=== PATIENT | female | born 1985 | race Caucasian/White ===

== ENCOUNTER 2019-01-02 08:40 | Emergency (ER) | payer OTHER ==
[2019-01-02 09:24] LABS: BILIRUBIN,URINE NEGATIVE (NEGATIVE); GLUCOSE, URINE (UA) NEGATIVE (NEGATIVE); KETONES,URINE (UA) NEGATIVE (NEGATIVE); LEUKOCYTE ESTERASE, URINE NEGATIVE (NEGATIVE); NITRITE,URINE NEGATIVE (NEGATIVE); OCCULT BLOOD,URINE NEGATIVE (NEGATIVE); PROTEIN,URINE NEGATIVE (NEGATIVE); UROBILINOGEN,URINE 0.2 (NORMAL) E.U./dL (NORMAL)
[2019-01-02 09:27] LABS: CLARITY,URINE CLEAR (CLEAR)
[2019-01-02 09:28] LABS: HCG UR QUAL NEGATIVE
[2019-01-02 09:29] LABS: BASOPHILS % (AUTO) 0.3 %; EOSINOPHILS # (AUTO) 0.2 10^3/uL (0.0-0.7); EOSINOPHILS % (AUTO) 1.7 %; LYMPHOCYTES # (AUTO) 1.8 10^3/uL (1.5-3.5); LYMPHOCYTES % (AUTO) 20.6 %; MEAN CORPUSCULAR HEMOGLOBIN 30.8 pg (27.0-31.0); MEAN CORPUSCULAR HGB CONC 34.5 g/dL (32.0-36.0); MEAN CORPUSCULAR VOLUME 89.4 fL (81.0-99.0); MEAN PLATELET VOLUME 10.8 fL (7.9-10.8); MONOCYTES # (AUTO) 0.6 10^3/uL (0.0-1.0); MONOCYTES % (AUTO) 6.6 %; NEUTROPHILS # (AUTO) 6.2 10^3/uL (1.5-6.6); NEUTROPHILS % (AUTO) 70.5 %; PLT - PLATELET COUNT 269 10^3/uL (130-450); RED BLOOD COUNT 4.54 10^6/uL (4.20-5.40); RED CELL DISTRIBUTION WIDTH 12.3 % (12.0-15.0); WHITE BLOOD COUNT 8.7 x10^3/uL (4.8-10.8)
[2019-01-02 09:43] LABS: ALBUMIN 4.6 g/dL (3.2-5.5); ALBUMIN/GLOBULIN RATIO 1.5 (1.0-2.2); BILIRUBIN,TOTAL 1.1 mg/dL (0.2-1.0); CALCIUM 9.1 mg/dL (8.5-10.3); CREATININE 0.7 mg/dL (0.4-1.0); TOTAL PROTEIN 7.7 g/dL (6.7-8.2)
--- NOTE | 2019-01-02 10:42 | ED Physician Documentation ---
PD HPI ABD PAIN - Stated complaint Stated Complaint: ABD PX - Chief complaint Chief Complaint: Abd Pain - History obtained from History obtained from: Patient, Family - History of Present Illness Timing - onset: How many days ago (4) Timing - duration: Days (4) Timing - details: Abrupt onset, Still present, Waxing and waning Quality: Sharp, Pain Location: RLQ Radiation: Lower back Improved by: Other (nothing) Worsened by: Other (nothing) Associated symptoms: No: Fever, Nausea, Vomiting, Diarrhea, Constipation Similar symptoms before: Has not had sx before Recently seen: Not recently seen - Additional information Additional information: 33-year-old female developed acute right lower quadrant cramping pain 4 days ago and this lasted for several hours and then improved and she had some aching for the rest of the day. She was well over the weekend with no pain at all. This morning she developed acute pain again and the pain was severe. She said some improvement now and she is down to about a 2 out of 10. She was not able to modify the pain in any way. Review of Systems Constitutional: denies: Fever, Chills Eyes: denies: Decreased vision Ears: denies: Ear pain Nose: denies: Congestion Throat: denies: Sore throat Cardiac: denies: Chest pain / pressure, Palpitations Respiratory: denies: Dyspnea, Cough GI: reports: Abdominal Pain. denies: Nausea, Vomiting, Constipation, Diarrhea : denies: Dysuria, Frequency PD PAST MEDICAL HISTORY - Past Medical History Past Medical History: Yes Endocrine/Autoimmune: Other Other Past Medical History: Graves Diseas. - Past Surgical History Past Surgical History: No - Present Medications Home Medications: Ambulatory Orders Medication Instructions Recorded Confirmed traMADol [Ultram] 50 - 100 mg PO Q6H PRN #20 tablet 01/02/19 - Allergies Allergies/Adverse Reactions: Allergies Allergy/AdvReac Type Severity Reaction Status Date / Time codeine AdvReac Nausea Verified 01/02/19 09:10 - Social History Does the pt smoke?: No Smoking Status: Never smoker PD ED PE NORMAL - Vitals Vital signs reviewed: Yes (normal ) - General General: Alert and oriented X 3, No acute distress, Well developed/nourished - HEENT HEENT: Atraumatic, PERRL, EOMI - Neck Neck: Supple, no meningeal sign, No bony TTP - Cardiac Cardiac: RRR, No murmur - Respiratory Respiratory: No respiratory distress, Clear bilaterally - Abdomen Abdomen: Normal bowel sounds, Soft, Non distended, No organomegaly, Other (minimal right lower quadrant tenderness without gaurding or rebound., ) - Back Back: No CVA TTP, No spinal TTP - Derm Derm: Normal color, Warm and dry, No rash - Extremities Extremities: No deformity, No edema - Neuro Neuro: Alert and oriented X 3, finance consultant 2-12 intact, No motor deficit, No sensory deficit, Normal speech Eye Opening: Spontaneous Motor: Obeys Commands Verbal: Oriented GCS Score: 15 - Psych Psych: Normal mood, Normal affect Results - Vitals Vitals: Vital Signs - 24 hr 01/02/19 01/02/19 09:07 11:10 Temperature 36.7 C Heart Rate 72 71 Respiratory 18 16 Rate Blood Pressure 109/65 110/74 O2 Saturation 100 100 Oxygen O2 Source Room air - Labs Labs: Laboratory Tests 01/02/19 01/02/19 01/02/19 09:18 09:18 09:27 WBC 8.7 RBC 4.54 Hgb 14.0 Hct 40.6 MCV 89.4 MCH 30.8 MCHC 34.5 RDW 12.3 Plt Count 269 MPV 10.8 Neut # (Auto) 6.2 Lymph # (Auto) 1.8 [place] # (Auto) 0.6 Eos # (Auto) 0.2 Baso # (Auto) 0.0 Absolute Nucleated RBC 0.00 Nucleated RBC % 0.0 Sodium Potassium Chloride Carbon Dioxide Anion Gap BUN Creatinine Estimated GFR (MDRD) Glucose Calcium Total Bilirubin AST ALT Alkaline Phosphatase Total Protein Albumin Globulin Albumin/Globulin Ratio Lipase Urine Color DARK YELLOW Urine Clarity CLEAR Urine pH 7.0 Ur Specific [place] 1.020 1.020 Urine Protein NEGATIVE Urine Glucose (UA) NEGATIVE Urine Ketones NEGATIVE Urine Occult Blood NEGATIVE Urine Nitrite NEGATIVE Urine Bilirubin NEGATIVE Urine Urobilinogen 0.2 (NORMAL) Ur Leukocyte Esterase NEGATIVE Ur Microscopic Review NOT INDICATED Urine Culture Comments NOT INDICATED Urine HCG, Qual NEGATIVE 01/02/19 09:27 WBC RBC Hgb Hct MCV MCH MCHC RDW Plt Count MPV Neut # (Auto) Lymph # (Auto) [place] # (Auto) Eos # (Auto) Baso # (Auto) Absolute Nucleated RBC Nucleated RBC % Sodium 137 Potassium 3.9 Chloride 104 Carbon Dioxide 22 Anion Gap 11.0 BUN 12 Creatinine 0.7 Estimated GFR (MDRD) 95 Glucose 93 Calcium 9.1 Total Bilirubin 1.1 H AST 14 ALT 10 Alkaline Phosphatase 47 Total Protein 7.7 Albumin 4.6 Globulin 3.1 Albumin/Globulin Ratio 1.5 Lipase 30 Urine Color Urine Clarity Urine pH Ur Specific [place] Urine Protein Urine Glucose (UA) Urine Ketones Urine Occult Blood Urine Nitrite Urine Bilirubin Urine Urobilinogen Ur Leukocyte Esterase Ur Microscopic Review Urine Culture Comments Urine HCG, Qual - Rads (name of study) CT ab/pel Radiology: Prelim report reviewed (Impression: 1. Grossly unremarkable normal caliber appendix. 2 2 Right ovarian cystic foci 2.5 and 3.1 cm in axial diameter. The larger and probable hemorrhagic cyst. Small dependent hyperdense pelvic free fluid compatible with rupture of hemorrhagic cyst. 3 No other obvious focal inflammatory or obstructive process), EMP read indepedently, See rad report Procedures - Bedside sono Bedside sono by EMP: With use of bedside ultrasound the right kidney is imaged it is sonographically nontender and there is no evidence of hydronephrosis. Examination of the right lower quadrant is unremarkable. There is no obvious free fluid and there is no obvious free fluid in the pelvis. PD MEDICAL DECISION MAKING - ED course Complexity details: reviewed results, re-evaluated patient, considered differential, d/w patient, d/w family ED course: 33-year-old female with right lower quadrant abdominal pain who is eating and afebrile is nontender on exam and on her CT scan she appears to have evidence of a right hemorrhagic ovarian cyst. Her level of pain right now is low and we will provide pain medication to use as needed. Departure - Departure Disposition: 01 Home, Self Care Clinical Impression: Hemorrhagic cyst of right ovary Condition: Stable Instructions: ED Cyst Ovarian Follow-Up: DOUG GARCIA [Primary Care Provider] - Prescriptions: traMADol [Ultram] 50 - 100 mg PO Q6H PRN #20 tablet PRN Reason: Pain
[2019-01-02 11:11] VITALS: BP 110/74
--- NOTE | 2019-01-02 11:37 | CT Report ---
Reason: RLQ pain Procedure Date: 01/02/2019 Accession Number: [id number] / [id number] Procedure: CT - Abdomen/Pelvis WO CPT Code: FULL RESULT: EXAM: CT ABDOMEN AND PELVIS EXAM DATE: 01/02/2019 11:05 AM. CLINICAL HISTORY: RLQ pain. COMPARISONS: None. TECHNIQUE: Routine helical CT imaging was performed through the abdomen and pelvis. IV contrast: No. Enteric contrast: No. Reconstructions: Coronal and sagittal. In accordance with CT protocol optimization, one or more of the following dose reduction techniques were utilized for this exam: automated exposure control, adjustment of mA and/or KV based on patient size, or use of iterative reconstructive technique. FINDINGS: Lung Bases: Clear. Bilateral breast implants. Liver: Grossly unremarkable. No suspicious lesion identified. Gallbladder/Bile Ducts: Cholecystectomy. No obvious ductal dilatation. Spleen: No splenomegaly. Pancreas: Grossly unremarkable. Adrenal Glands: No nodule. Kidneys: No hydronephrosis, hydroureter, or stones. No focal renal lesion identified. Peritoneal Cavity/Bowel: No intestinal dilatation. Normal appendiceal caliber without obvious periappendiceal inflammation. Tip of the appendix is not well delineated from adjacent bowel. Small relatively dense pelvic free fluid. No free air or mesenteric adenopathy. A tiny fat-containing umbilical hernia. Retroperitoneum: No obvious mass or adenopathy. Pelvic Organs: No gross abnormality of the mostly contracted bladder. Uterus is not well delineated from adjacent unopacified bowel loops. Prominent right ovary with 2 hypodense cystic areas measuring 2.5 cm and 3.1 cm in maximal diameter of 5 HU and 20 HU, respectively. No obvious adenopathy. Vasculature: Normal caliber abdominal aorta. Bones: No significant abnormality. IMPRESSION: 1. Grossly unremarkable normal caliber appendix. 2. 2 right ovarian cystic foci 2.5 and 3.1 cm in axial diameter, the larger a probable hemorrhagic cyst. Small dependent hyperdense pelvic free fluid compatible with rupture of hemorrhagic cyst. 3. No other obvious focal inflammatory or obstructive process. RADIA
== END 2019-01-02 12:02 | disposition home or self-care (01) ==
LOC: ED 08:40
DX: N83.201 Unspecified ovarian cyst, right side (principal)
CPT/HCPCS: 36415; 74176; 80053; 81001; 81003; 81025; 83690; 85025; 87086; 99283; 99284

== ENCOUNTER 2019-08-20 15:04 | Emergency (ER) | payer OTHER ==
[2019-08-20 15:19] VITALS: BP 129/83
--- NOTE | 2019-08-20 15:40 | ED Physician Documentation ---
PD HPI URI - Stated complaint Stated Complaint: FLU LIKE SYMPTOMS - Chief complaint Chief Complaint: Fever - History obtained from History obtained from: Patient - History of Present Illness Timing details: Gradual onset Pain level max: 0 Pain level now: 0 Associated symptoms: Fever, Nasal congestion, Rhinorrhea, Dry cough. No: Sore throat Improves by: Rest Worsened by: Activity - Additional information Additional information: 34-year-old female states that she has had a runny nose and congestion for the past week. Developed a fever 2 days ago, 101. Better with Motrin and Tylenol. Better with rest. Nothing makes it worse. She states that she was in [place] last week at a children's birthday republic[employer], but was not exposed to anyone with coronavirus 19 that she is aware of. No close contact. She has a history of Graves' disease. She is not , breast-feeding or trying to become . Review of Systems Constitutional: reports: Fever Nose: reports: Rhinorrhea / runny nose, Congestion Respiratory: reports: Cough GI: denies: Vomiting, Diarrhea Skin: denies: Rash PD PAST MEDICAL HISTORY - Past Medical History Past Medical History: Yes Endocrine/Autoimmune: Other - Past Surgical History Past Surgical History: No - Present Medications Home Medications: Ambulatory Orders Medication Instructions Recorded Confirmed Amitriptyline [Elavil] 0 mg PO QPM 08/20/19 08/20/19 Levothyroxine [Synthroid] 0 mcg PO QDAC 08/20/19 08/20/19 - Allergies Allergies/Adverse Reactions: Allergies Allergy/AdvReac Type Severity Reaction Status Date / Time codeine AdvReac Nausea Verified 08/20/19 15:19 - Social History Does the pt smoke?: No Smoking Status: Never smoker Does the pt have substance abuse?: No - Family History Family history: reports: Non contributory PD ED PE NORMAL - Vitals Vital signs reviewed: Yes - General General: Alert and oriented X 3, No acute distress, Well developed/nourished - HEENT HEENT: PERRL, Ears normal, Moist mucous membranes, Pharynx benign - Neck Neck: Supple, no meningeal sign - Cardiac Cardiac: RRR, Strong equal pulses - Respiratory Respiratory: No respiratory distress, Clear bilaterally - Abdomen Abdomen: Soft, Non tender, Non distended - Derm Derm: Warm and dry, No rash - Extremities Extremities: No edema - Neuro Neuro: Alert and oriented X 3 - Psych Psych: Normal mood, Normal affect Results - Vitals Vitals: Vital Signs - 24 hr 08/20/19 15:15 Temperature 37.1 C Heart Rate 82 Respiratory 16 Rate Blood Pressure 129/83 H O2 Saturation 100 Oxygen O2 Source Room air PD MEDICAL DECISION MAKING - ED course Complexity details: considered differential, d/w patient ED course: Patient presents to the emergency department with what appears to be a viral upper respiratory infection. She is very well-appearing, nontoxic. Afebrile here. No hypoxia. No significant exposure or risk for covid 19. Patient counseled regarding signs and symptoms for which I believe and urgent re- evaluation would be necessary. Patient with good understanding of and agreement to plan and is comfortable going home at this time This document was made in part using voice recognition software. While efforts are made to proofread this document, sound alike and grammatical errors may occur. Patient will stay out of work for the next 3 days. Departure - Departure Disposition: Home, Self Care Clinical Impression: Viral URI Condition: Good Instructions: ED Viral Syndrome Follow-Up: DOUG GARCIA [Primary Care Provider] - Within 1 week Comments: Continue Motrin and Tylenol as needed for fevers. Return if you worsen. Follow-up with your doctor for further care. Drink plenty of fluids and rest.
== END 2019-08-20 15:43 | disposition home or self-care (01) ==
LOC: ED 15:04
DX: J06.9 Acute upper respiratory infection, unspecified (principal)
CPT/HCPCS: 99282; 99284